=== PATIENT | male | born 1975 ===

== ENCOUNTER 2017-01-03 05:08 | Emergency (ER) | payer SELFPAY ==
[2017-01-03 05:35] LABS: SPECIFIC GRAVITY 1.015 (1.001-1.030); URINE APPEARANCE CLEAR; URINE BILIRUBIN NEGATIVE (NEGATIVE); URINE BLOOD NEGATIVE (NEGATIVE); URINE COLOR YELLOW; URINE GLUCOSE (UA) NEGATIVE (NEGATIVE); URINE LEUKOCYTE ESTERASE NEGATIVE (NEGATIVE); URINE NITRITE NEGATIVE (NEGATIVE); URINE PROTEIN NEGATIVE (NEGATIVE); URINE UROBILINOGEN NORMAL (0-1 mg/dl)
[2017-01-03] MEDS ORDERED: KETOROLAC TROMETHAMINE 30 MG/ML 1 ML VIAL ONE (05:52)
[2017-01-03] MEDS ORDERED: ONDANSETRON 4 MG/2ML 2 ML VIAL ONE (05:52)
[2017-01-03] MEDS ORDERED: HYDROMORPHONE HCL 1 MG/ML SYRINGE ONE (05:52)
[2017-01-03 06:30] LABS: BASO % 0.2 % (0.2-1.0); HEMATOCRIT 45.8 % (32.0-52.0); IMM NEUT # 0.2 K/mm3 (0-0.2); IMM NEUT% 1.1 % (0-1); LYMPH # 1.2 (1.0-4.8); LYMPH % 5.9 % (15-45); MEAN CELL VOLUME 84.8 fl (80.0-94.0); MEAN CORPUSCULAR HEMOGLOBIN 27.8 pg (27.0-31.0); MEAN CORPUSCULAR HGB CONC 32.8 g/dl (33.0-37.0); MEAN PLATELET VOLUME 11.3 fl (7.4-10.4); MONO # 1.5 (0.0-0.8); NEUT % 85.8 % (43-75); PLATELET COUNT 224 K/mm3 (130-400)
[2017-01-03] MEDS ORDERED: CEFTRIAXONE 1 GRAM DUPLEX 50 ML IV ONE (06:50)
[2017-01-03] MEDS ORDERED: DOXYCYCLINE HYCLATE 100 MG TABLET ONE (06:50)
[2017-01-03 07:12] LABS: ALB/GLOB RATIO 1.5 (>1.0); ALBUMIN 4.1 gm/dL (3.5-5.7)
[2017-01-03 07:23] LABS: BAND 6 % (0-10); BASOPHIL 0 % (0-1); EOSINOPHIL 0 % (1-3); LYMPHOCYTE 3 % (15-45); MONOCYTE 4 % (4-12); NEUTROPHILS 87 % (43-75); PLATELET ESTIMATE NORMAL (NORMAL); TOTAL CELLS COUNTED 100
--- NOTE | 2017-01-03 07:55 | CT ---
ABD/PELVIS W/O CON: 01/03/2017 5:51 AM INDICATION: Left flank pain since 0200 hours. No trauma. No urinary complaints. COMPARISON: None. TECHNIQUE: Contiguous 3 mm transaxial images from a [employer] [address] scanner were obtained from the lung bases through the pubic symphysis without oral or intravenous contrast. Multiplanar images were created at the CT scanner. CT DI: 10.9 DLP: 592.3 FINDINGS: Lung base: Area of consolidation is noted at the left base worrisome for pneumonia. Additionally, there is a 5 mm subpleural nodule on image 14. Some mosaic attenuation is noted at the lung bases. There is no pericardial effusion.. This examination is limited for the evaluation of solid organs and vascular structures due to the lack of intravenous contrast which is standard for urinary calculus assessment CT. Liver: Normal. Gallbladder: Normal Spleen: Normal. Pancreas: Normal. Adrenal Glands: Normal. Right kidney & ureter: - Calculi - No . - Ureter Calculi - No. - Obstruction / hydronephrosis - No Left kidney & ureter: - Calculi - No . - Ureter Calculi- No . - Obstruction / hydronephrosis - No The unopacified stomach and bowel is within normal limits. Appendix is normal No lymphadenopathy is seen in the abdomen or pelvis No free fluid in the abdomen or pelvis. Tiny fat-containing umbilical hernia is present. Hernia neck measures approximately 13 mm. Urinary bladder: -Bladder Calculi- No . - Bladder is decompressed. - Wall is thin. Bone windows- No lytic or sclerotic lesions. Partial sacralization of L5 is noted on the left with pseudoarthrosis of the transverse elements of L5 and S1. This could be a source of pain. Degenerative changes of the spine are present. Sagittal alignment is intact. IMPRESSION: 1. No urinary tract calculi. 2. Non-contrast evaluation of the abdomen and pelvis is otherwise notable for probable left lower lobe pneumonia. Other incidental findings as above. Preliminary report was provided by [facility] at approximately 0631 hours on 01/03/2017.
== END 2017-01-03 07:27 | disposition home or self-care (01) ==
LOC: ED 05:08
DX: J18.9 Pneumonia, unspecified organism (principal); R10.9 Unspecified abdominal pain; F17.210 Nicotine dependence, cigarettes, uncomplicated
CPT/HCPCS: 83690; 82150; 85025; 80053; 81003; 84484; 36415; 74176; 96375 ×3; 99284 ×2; 96374; J1170; J1885; A9270; J2405; J0696